=== PATIENT | female | born 1995 | race Caucasian/White ===

== ENCOUNTER 2018-03-08 09:37 | Emergency (ER) | payer OTHER ==
[~2018-03-08] VITALS: Ht 162.6 cm; Wt 47.6 kg
[~2018-03-08 09:37] MED LIST: ACETAMINOPHEN-1 EAC1 PO; AFRIN15 ML NS; AMOXICILLIN500 M1 PO; BACTROBAN22 GM TP; BENADRYL25 MG PO; CEPHALEXIN 500500 M3 PO; HYDROCODONE-AP1 EAC6 PO; IBUPROFEN 600600 M1 PO; MEDROLDOSEPACK PO; NAPROSYN500 MG PO; NOHOMEMEDICATIONS; PROMETHAZINE D480 ML PO; ROBAXIN500 MG PO; TESSALON PERLE100 MG PO; TRAMADOL 50 MG50 MG PO; TRIAMCINOLONE A80 G2 TOP; TYLENOL325 MG PO; VICKS DAYQU5 MG/5 ML PO; ZOFRAN ODT4 MG PO
[2018-03-08 10:32] VITALS: BP 103/70
== END 2018-03-08 10:33 | disposition home or self-care (01) ==
LOC: M.ERS 09:37
DX: R51 Headache (principal); R42 Dizziness and giddiness

== ENCOUNTER 2018-07-20 13:09 | Emergency (ER) | payer OTHER ==
[~2018-07-20] VITALS: Ht 160 cm; Wt 45.4 kg
[2018-07-20 14:24] LABS: INFLUENZA A ANTIGEN None Detected (None Detect); INFLUENZA B ANTIGEN None Detected (None Detect)
[2018-07-20] MEDS ORDERED: VENTOLIN HFA 1818 GM INH (14:51)
[2018-07-20] MEDS ORDERED: PHENERGAN 25 MG25 MG PO (14:51)
[2018-07-20 15:04] VITALS: BP 122/80
== END 2018-07-20 15:05 | disposition home or self-care (01) ==
LOC: M.ERS 13:09
PROVIDERS: Physician Assistant
DX: B34.9 Viral infection, unspecified (principal); R06.02 Shortness of breath; G43.909 Migraine, unspecified, not intractable, without status migrainosus; J45.909 Unspecified asthma, uncomplicated

== ENCOUNTER 2018-09-08 22:01 | Emergency (ER) | payer OTHER ==
[~2018-09-08] VITALS: Ht 160 cm; Wt 43.1 kg
[~2018-09-08 22:01] MED LIST changes: +PHENERGAN 25 MG25 MG PO; +VENTOLIN HFA 1818 GM INH
[2018-09-09 00:26] VITALS: BP 97/67
== END 2018-09-09 00:29 | disposition home or self-care (01) ==
LOC: M.ERS 22:01
DX: F41.9 Anxiety disorder, unspecified (principal); G43.909 Migraine, unspecified, not intractable, without status migrainosus; J45.909 Unspecified asthma, uncomplicated

== ENCOUNTER 2019-03-06 23:00 | Emergency (ER) | payer OTHER ==
[~2019-03-06] VITALS: Ht 160 cm; Wt 45.4 kg
[2019-03-06 23:05] VITALS: BP 135/88
[2019-03-06] MEDS ORDERED: BIRTH CONTROL (23:09)
[2019-03-06] MEDS ORDERED: PREDNISONE 20 M20 M1 PO (23:15)
== END 2019-03-06 23:35 | disposition home or self-care (01) ==
LOC: M.ERS 23:00
DX: T78.1XXA Other adverse food reactions, not elsewhere classified, initial encounter (principal); J45.909 Unspecified asthma, uncomplicated; G43.909 Migraine, unspecified, not intractable, without status migrainosus; Z91.018 Allergy to other foods